=== PATIENT | male | born 1960 | race American Indian/Alaskan Native ===

== ENCOUNTER 2018-01-15 08:22 | Outpatient (CLI) | payer BC ==
--- NOTE | 2018-01-15 13:40 | Ultrasound Report ---
Sonogram right upper quadrant: History: Hepatitis C carrier Findings: Aortic diameter 2.3 cm. Normal liver. Normal gallbladder. Gallbladder wall thickness 2.2 mm. Common bile duct diameter 2.6 mm. Right kidney 10.2 x 5 x 5.4 cm. Cortical thickness is 1.6 cm. No mass. No hydronephrosis. Normal pancreas. Impression: Essentially negative sonogram right upper quadrant
== END 2018-01-15 08:23 | disposition home or self-care (01) ==
LOC: US 08:22
PROVIDERS: ATTEND Family Medicine
DX: B18.2 Chronic viral hepatitis C (principal)
CPT/HCPCS: 76705

== ENCOUNTER 2019-01-31 15:09 | Outpatient (CLI) | payer BC ==
[2019-01-31 16:34] LABS: Albumin 3.8 g/dL (3.9-5); BUN/Creatinine Ratio 20; Blood Urea Nitrogen 14 mg/dL (9-20); Calcium 9.3 mg/dL (8.4-10.2); Hemolysis Index 318
[2019-01-31 17:00] LABS: Alanine Aminotransferase 56 units/L (7-56)
[2019-01-31 17:08] LABS: Hematocrit 49.2 % (35.5-45.6); Hemoglobin 16.7 gm/dl (11.8-15.2); Mean Corpuscular HGB Conc 34 % (32-34); Mean Corpuscular Volume 90 fl (84-94); Platelet Count 187 K/mm3 (140-440); Red Blood Count 5.49 M/mm3 (3.65-5.03)
== END 2019-01-31 15:10 | disposition home or self-care (01) ==
LOC: LAB 15:09
PROVIDERS: ATTEND Internal Medicine Gastroenterology
DX: B19.20 Unspecified viral hepatitis C without hepatic coma (principal)
CPT/HCPCS: 36415; 80053; 85027; 86709